=== PATIENT | female | born 1945 | race Caucasian/White ===

== ENCOUNTER → 2016-10-09 | Outpatient (CLI) | payer OTHER ==
[~2016-10-09] MED LIST: ADVAIR 100-501 EACH INH; ASPIRIN EC81 M1 PO; NORCO 5-325 TA1 EACH PO; OXYBUTYNIN 5 MG5 M1; PROZAC 10 MG CA10 MG; SYNTHROID25 MCG
== END ==
LOC: RAD 10-04 08:49
DX: Z12.31 Encounter for screening mammogram for malignant neoplasm of breast (principal)

== ENCOUNTER → 2017-11-07 | Outpatient (CLI) | payer OTHER | LOC: RAD 11-05 13:49 | DX: Z12.31 Encounter for screening mammogram for malignant neoplasm of breast (principal) ==

== ENCOUNTER → 2018-12-25 | Outpatient (CLI) | payer OTHER ==
[~2018-12-25] MED LIST changes: +BREO ELLIPTA 21 EACH INH; +DYAZIDE 37.5-21 EACH PO; +LIPITOR10 MG PO; +PROBIOTIC1 EAC2 PO; -PROZAC 10 MG CA10 MG; +PROZAC 20 MG20 MG PO; -SYNTHROID25 MCG; +SYNTHROID75 MCG PO
== END ==
LOC: BC 12:03
DX: Z12.31 Encounter for screening mammogram for malignant neoplasm of breast (principal)

== ENCOUNTER → 2020-02-09 | Outpatient (CLI) | payer OTHER | LOC: BC 10:37 | PROVIDERS: ATTEND Internal Medicine | DX: Z12.31 Encounter for screening mammogram for malignant neoplasm of breast (principal) ==

== ENCOUNTER 2020-03-24 14:12 | Emergency (ER) | payer OTHER ==
[~2020-03-24] VITALS: Ht 154.9 cm; Wt 64.4 kg
[2020-03-24] MEDS ORDERED: NORCO 10-325 T1 EACH PO (15:55)
[2020-03-24 16:17] VITALS: BP 154/76
== END 2020-03-24 16:20 | disposition home or self-care (01) ==
LOC: ER 14:12
DX: S01.112A Laceration without foreign body of left eyelid and periocular area, initial encounter (principal); S01.21XA Laceration without foreign body of nose, initial encounter; M25.562 Pain in left knee; M17.0 Bilateral primary osteoarthritis of knee; Z90.711 Acquired absence of uterus with remaining cervical stump; Z90.49 Acquired absence of other specified parts of digestive tract; Z98.890 Other specified postprocedural states; Z96.642 Presence of left artificial hip joint; Z79.899 Other long term (current) drug therapy; Z88.8 Allergy status to other drugs, medicaments and biological substances; W18.09XA Striking against other object with subsequent fall, initial encounter; Y93.89 Activity, other specified; Y92.59 Other trade areas as the place of occurrence of the external cause; Y99.8 Other external cause status

== ENCOUNTER 2020-05-24 15:19 | Emergency (ER) | payer OTHER ==
[~2020-05-24] VITALS: Ht 154.9 cm; Wt 68.0 kg
[~2020-05-24 15:19] MED LIST changes: +NORCO 10-325 T1 EACH PO
[2020-05-24 17:30] VITALS: BP 148/72
== END 2020-05-24 17:30 | disposition home or self-care (01) ==
LOC: ER 15:19
DX: M25.552 Pain in left hip (principal); Z96.643 Presence of artificial hip joint, bilateral; Z90.49 Acquired absence of other specified parts of digestive tract; Z90.711 Acquired absence of uterus with remaining cervical stump; Z79.899 Other long term (current) drug therapy; Z88.8 Allergy status to other drugs, medicaments and biological substances